=== PATIENT | female | born 1960 | race African-American/Black ===

== ENCOUNTER 2020-11-20 07:39 | Emergency (ER) | payer MEDICAID ==
[~2020-11-20] VITALS: Ht 160 cm; Wt 64.0 kg
[2020-11-20] MEDS ORDERED: HALOPERIDOL LACTATE 5MG/ML VIAL IM ONE (08:00)
[2020-11-20] MEDS ORDERED: LORAZEPAM 2MG/ML CPJ IM STA (08:31)
[2020-11-20 09:06] LABS: CHLORIDE 110 mEq/L (98-107)
[2020-11-20 09:28] LABS: BASOPHILS % 0.3 % (0.0-2.0); EOSINOPHILS % 0.6 % (0.0-5.0); HEMATOCRIT. 44.8 % (36.0-48.0); HEMOGLOBIN. 15.6 g/dL (12.0-16.0); MEAN CORPUSCULAR HEMOGLOBIN 34.1 pg (28.0-32.0); MEAN CORPUSCULAR VOLUME 97.9 fL (81.0-99.0); MEAN PLATELET VOLUME 8.2 fl (7.4-10.4); MONOCYTES % 10.1 % (2.0-8.0); PLATELET 190 x1000/uL (130-400); RED BLOOD CELL COUNT 4.58 mill/uL (4.2-5.4); RED CELL DISTRIBUTION WIDTH 17.3 % (11.6-14.6)
[2020-11-20 09:57] LABS: ETHANOL BLOOD 72 mg/dL
[2020-11-20 10:04] LABS: CLARITY URINE CLOUDY (CLEAR); COLOR URINE YELLOW (YELLOW); KETONES URINE NEGATIVE (NEGATIVE); LEUKOCYTE ESTERASE URINE 2+ (NEGATIVE); NITRITE URINE NEGATIVE (NEGATIVE); OCCULT BLOOD URINE TRACE (NEGATIVE); PROTEIN URINE NEGATIVE (NEGATIVE); SPECIFIC GRAVITY URINE 1.004 (1.005-1.030); UROBILINOGEN URINE 0.2 E.U./dL (0.2-1.0)
[2020-11-20 10:21] LABS: *AMPHETAMINES SCREEN URINE NEGATIVE (NEGATIVE); *BARBITURATES SCREEN URINE NEGATIVE (NEGATIVE); CANNABINOID URINE SCREEN NEGATIVE (NEGATIVE); PHENCYCLIDINE URINE SCREEN NEGATIVE (NEGATIVE)
[2020-11-20 10:22] LABS: *COCAINE SCREEN URINE NEGATIVE (NEGATIVE); OPIATES URINE SCREEN NEGATIVE (NEGATIVE)
[2020-11-20 10:23] LABS: *BENZODIAZEPINES SCREEN URINE NEGATIVE (NEGATIVE)
[2020-11-20 10:27] LABS: METHADONE URINE SCREEN NEGATIVE (NEGATIVE)
[2020-11-20 11:34] VITALS: BP 115/62
== END 2020-11-20 13:03 | disposition left against medical advice (07) ==
LOC: ER 07:56 → EDBD 07:56 → ER 13:03
DX: R41.82 Altered mental status, unspecified (principal); R45.1 Restlessness and agitation; Z78.1 Physical restraint status
CPT/HCPCS: 36415; 71045; 80053; 80305; 80320; 81003; 85025; 87086; 96372; 99284; J1630; Z7610; J2060; G0480